=== PATIENT | male | born 1960 | race African-American/Black ===

== ENCOUNTER 2018-10-07 04:49 | Inpatient (IN) | payer MEDICARE, MEDICAID ==
[~2018-10-07] VITALS: Ht 182.9 cm; Wt 90.7 kg
[~2018-10-07 04:49] MED LIST: ALPRAZOLAM1 M2 PO; COREG6.25 MG PO; FAMOTIDINE20 MG PO; GLUCOPHAGE500 MG PO; HYDROCHLOROTH12.5 MG PO; LYRICA50 MG PO; METOCLOPRAMIDE H5 M1 PO; NORVASC10 MG PO; TAMSULOSIN HCL0.4 MG PO; VICODIN ES 7.51 EACH ORAL; ZESTRIL20 MG PO; ZOCOR40 MG PO
[2018-10-07 04:58] VITALS: BP 127/84
--- NOTE | 2018-10-07 05:02 | NUR ---
ED Nurse Note: Patient BIBA RA 61 c/o chest pain radiating to back, shortness of breath for 1 hour. Patient reports 9/10 pressure pain that went to 5/10 after 3 sprays of ntg, and 324 mg of ASA. pt is alert and oriented times 4. pt states he is blind. pt vital signs are stable aside heart rate being at 108 during traig. pt presents with a pace maker located on L chest. fall precations are taken.
--- NOTE | 2018-10-07 05:10 | Emergency Room Report ---
History of Present Illness General Chief Complaint: Chest Pain Source: Patient Present Illness HPI Is a 58-year-old male with a history of CAD, CHF, A. fib, diabetes who presents with chief complaint of chest pain. He gets frequent chest pain and goes the hospital frequently. He presents with chief complaint of chest pain while he was a restaurant nearby. Pain is 7 to his chest. No radiation. No shortness of breath. No fever chills but no nausea no vomiting. Similar symptom in the past. EMS gave him aspirin and nitroglycerin. Last hospitalization was a month ago. Allergies: Coded Allergies: No Known Allergies (Verified , 11/06/11) Patient History Past Medical History: see triage record, old chart reviewed, DM, HTN, FL, CHF, AFib Past Surgical History: other - AICD Pertinent Family History: none Social History: Reports: smoking Immunizations: other Reviewed Nursing Documentation: PMH: Agreed; PSxH: Agreed Nursing Documentation-PMH Past Medical History: No History, Except For Hx Cardiac Problems: Yes - afib Hx Hypertension: Yes Hx Diabetes: Yes Hx Cancer: No Hx Gastrointestinal Problems: No Hx Neurological Problems: No Review of Systems Eye: Denies: eye pain, blurred vision ENT: Denies: ear pain, nose congestion, throat swelling Respiratory: Denies: cough, shortness of breath Cardiovascular: Reports: chest pain; Denies: palpitations Gastrointestinal: Denies: abdominal pain, diarrhea, nausea, vomiting Musculoskeletal: Denies: back pain, joint pain Skin: Denies: rash Neurological: Denies: headache, numbness Endocrine: Denies: increased thirst, increased urine Hematologic/Lymphatic: Denies: easy bruising All Other Systems: negative except mentioned in HPI Physical Exam Vital Signs Date Time Temp Pulse Resp B/P (MAP) Pulse Ox O2 Delivery O2 Flow Rate FiO2 10/07/18 04:52 98.4 108 16 127/84 98 Room Air 10/07/18 04:58 99 VITALS UNREMARKABLE Sp02 EP Interpretation: reviewed, normal General Appearance: well appearing, no apparent distress, alert Head: normocephalic, atraumatic Eyes: bilateral eye PERRL, bilateral eye EOMI, bilateral eye other - Patient is blind ENT: hearing grossly normal, normal pharynx Neck: full range of motion, supple, no meningismus Respiratory: chest non-tender, lungs clear, normal breath sounds Cardiovascular #1: regular rate, rhythm, no murmur Gastrointestinal: normal bowel sounds, non tender, no mass, no organomegaly, no bruit, non-distended Musculoskeletal: back normal, gait/station normal, normal range of motion, other - Right BKA Neurologic: alert, oriented x3 Psychiatric: mood/affect normal Skin: warm/dry Medical Decision Making Diagnostic Impression: Primary Impression: ACS (acute coronary syndrome) Additional Impressions: Hyperglycemia due to type 2 diabetes mellitus Qualified Codes: E11.65 - Type 2 diabetes mellitus with hyperglycemia CKD (chronic kidney disease) Qualified Codes: N18.9 - Chronic kidney disease, unspecified Proteinuria Qualified Codes: R80.9 - Proteinuria, unspecified ER Course Patient presents with chest pain. He does have multiple risk factors for ACS. His troponin is 0.3. He is pain-free here. He received aspirin and nitroglycerin by EMS. I gave him Lovenox here. EKG showed no evidence of acute ST elevation. Will admit for further workup. I contacted Dr. Raphael for admission. Lab Results Impression labs with intermediate troponin EKG Diagnostic Results Rate: normal Rhythm: NSR ST Segments: other - bifasicular block Rhythm Strip Diag. Results EP Interpretation: yes Rate: 99 Rhythm: NSR, no PVC's Chest X-Ray Diagnostic Results Chest X-Ray Diagnostic Results : Chest X-Ray Ordered: Yes # of Views/Limited/Complete: 1 View Indication: Chest Pain EP Interpretation: Yes Interpretation: no consolidation, no effusion, no pneumothorax, no acute cardiopulmonary disease Impression: No acute disease Electronically Signed by: Sergio Chairez MD Last Vital Signs Date Time Temp Pulse Resp B/P (MAP) Pulse Ox O2 Delivery O2 Flow Rate FiO2 10/07/18 04:58 98.4 108 16 127/84 98 Room Air 10/07/18 04:58 99 Status: improved Disposition: ADMITTED INPATIENT Condition: Serious Sergio Chairez MD Oct 07, 2018 05:10
[2018-10-07 05:48] LABS: BASOPHILS % (AUTO) 1.6 % (0.0-2.0); EOSINOPHILS % (AUTO) 0.6 % (0.0-3.0); HEMATOCRIT 40.6 % (42.0-52.0); HEMOGLOBIN 13.8 G/DL (14.2-18.0); MEAN CORPUSCULAR VOLUME 86 FL (80-99); MONOCYTES % (AUTO) 7.2 % (1.0-10.0); NEUTROPHILS % (AUTO) 76.5 % (45.0-75.0); PLATELET COUNT 286 K/UL (150-450); RED BLOOD COUNT 4.71 M/UL (4.70-6.10); RED CELL DISTRIBUTION WIDTH 14.8 % (11.6-14.8); WHITE BLOOD COUNT 12.7 K/UL (4.8-10.8)
[2018-10-07 05:58] LABS: APPEARANCE,URINE CLEAR; BILIRUBIN, URINE NEGATIVE (NEGATIVE); COLOR,URINE PALE YELLOW; GLUCOSE, URINE (UA) 4+ (NEGATIVE); KETONES,URINE NEGATIVE (NEGATIVE); LEUKOCYTE ESTERASE ,URINE NEGATIVE (NEGATIVE); NITRITE,URINE NEGATIVE (NEGATIVE); PH,URINE 5 (4.5-8.0); PROTEIN,URINE 2+ (NEGATIVE); UROBILINOGEN,URINE NORMAL MG/DL (0.0-1.0)
[2018-10-07 06:00] LABS: ANION GAP 9 mmol/L (5-15); BLOOD UREA NITROGEN 39 mg/dL (7-18); CALCIUM 9.7 MG/DL (8.5-10.1); CARBON DIOXIDE 25 MMOL/L (21-32); CHLORIDE 98 MMOL/L (98-107); CREATININE 1.9 MG/DL (0.55-1.30); SODIUM 132 MMOL/L (136-145)
[2018-10-07 06:15] LABS: ALANINE AMINOTRANSFERASE 23 U/L (12-78); ALBUMIN 4.1 G/DL (3.4-5.0); ALBUMIN/GLOBULIN RATIO 1.1 (1.0-2.7); ALKALINE PHOSPHATASE 94 U/L (46-116); ASPARTATE AMINO TRANSFERASE 12 U/L (15-37); BILIRUBIN,TOTAL 0.5 MG/DL (0.2-1.0); CKMB 1.7 NG/ML (0.0-3.6); CREATINE KINASE 104 U/L (26-308)
--- NOTE | 2018-10-07 06:20 | NUR ---
ED Nurse Note: PT has a R leg prostesis.
[2018-10-07 06:21] VITALS: BP 120/81
--- NOTE | 2018-10-07 06:28 | NUR ---
ED Nurse Note: PT is transfered to TELE with ERIC ROLLE . pt status, condition and vital signs are reported to ERMD and receving RN prior to transfer. pt vital signs, status and condtion are stable and pt is stable for transfer at this time.
[2018-10-07] MEDS ORDERED: Enoxaparin 100mg Inj SUBQ ONE (06:30)
[2018-10-07] MEDS ORDERED: Morphine Sulfate 4mg/ml Inj (IV/IM USE ONLY) IVP ONE (06:45)
--- NOTE | 2018-10-07 07:20 | NUR ---
NURSE NOTES: I received the patient resting in bed. Patient alert and oriented x4. Bed in the lowest position and call light within reach. Patient does not display any signs of distress or SOB. I will continue to monitor the patient and implement care.
[2018-10-07 08:00] VITALS: BP 126/80
[2018-10-07] MEDS: Aspirin Baby 81mg ORAL SCH (08:29)
--- NOTE | 2018-10-07 10:32 | Consultation ---
Consult Note Consult Note asked to eval for renal failure- Is a 58-year-old male with a history of CAD, CHF, A. fib, diabetes who presents with chief complaint of chest pain. He gets frequent chest pain and goes the hospital frequently. He presents with chief complaint of chest pain while he was a restaurant nearby. Pain is 7 to his chest. No radiation. No shortness of breath. No fever chills but no nausea no vomiting. Similar symptom in the past. EMS gave him aspirin and nitroglycerin. Last hospitalization was a month ago. No Known Allergies (Verified , 11/06/11) Past Medical History: see triage record, old chart reviewed, DM, HTN, NE, CHF, AFib Past Surgical History: other - AICD Past Medical History: No History, Except For Hx Cardiac Problems: Yes - afib Hx Hypertension: Yes Hx Diabetes: Yes interviewed examined data reviewed Assessment/Plan Diabetic Nephropathy DM OOC Renal failure chronic Pacer ACS urine + for MJ coreg zestril nitro asa starlix medium cho diet accu check ss insulin 2Decho : There is akinesis of posterior wall. Ischemic cardiomyopathy can not be excluded. Left ventricular ejection fraction estimated to be 45 %. per orders Shashank Thakur MD Oct 07, 2018 10:32
[2018-10-07] MEDS: Carvedilol 6.25mg Tab ORAL SCH ×2 (11:16→22:45)
[2018-10-07] MEDS: Lisinopril 2.5mg tab ORAL SCH (11:16)
[2018-10-07 11:17] VITALS: BP 127/74
[2018-10-07] MEDS: Nitroglycerin Patch 0.4mg TDERMAL SCH (11:17)
--- NOTE | 2018-10-07 11:20 | Diagnostic Imaging Report ---
Indication: Chest pain Comparison: 02/17/2013 A single view chest radiograph was obtained. Findings: Cardiomediastinal appearance is within normal limits for age. There is a pacemaker on the left again noted. The lungs are clear. Pulmonary vascularity is appropriate. The diaphragmatic contour is smooth and costophrenic angles are sharp. No pleural effusions are identified. The bones are unremarkable. Impression: No acute findings
[2018-10-07 12:00] VITALS: BP 132/70
--- NOTE | 2018-10-07 17:23 | Cardiology Report ---
APPROVED REPORT EXAM: Two-dimensional and M-mode echocardiogram with Doppler and color Doppler. INDICATION Congestive Heart Failure M-Mode DIMENSIONS IVSd1.0 (0.7-1.1cm)Left Atrium (MM)3.6 (1.6-4.0cm) LVDd5.3 (3.5-5.6cm)Aortic Root4.0 (2.0-3.7cm) PWd1.2 (0.7-1.1cm)Aortic Cusp Exc.2.0 (1.5-2.0cm) IVSs1.3 cm LVDs4.2 (2.5-4.0cm) PWs1.1 cm Technically difficult study due to poor acoustical windows. Left ventricular chamber size at upper normal limits. There is akinesis of posterior wall. Ischemic cardiomyopathy can not be excluded. Left ventricular ejection fraction estimated to be 45 %. Mild left ventricular hypertrophy by 2D. No evidence of pericardial effusion. All other cardiac chamber sizes are within normal limits. Focal aortic valve sclerosis with adequate cusp excursion. Thickened mitral valve leaflets with normal excursion. Mitral annulus and aortic root calcification. Pulmonic valve not well visualized. Normal tricuspid valve structure. IVC measured at 2.0 cm with slight physiologic collapse A color flow and spectral Doppler study was performed and revealed: Trace aortic regurgitation. Mild to moderate mitral regurgitation. Mitral diastolic velocities suggest reduced left ventricular relaxation c/w mild LV diastolic dysfunction (Grade I). Trace tricuspid regurgitation. Tricuspid systolic velocities suggests peak right ventricular systolic pressure of 13 mmHg
--- NOTE | 2018-10-07 17:56 | Cardiology Report ---
APPROVED REPORT EKG Measurement Heart [id number] Sinus tachycardia Right bundle branch block Left anterior fascicular block Bifascicular block Left ventricular hypertrophy with repolarization abnormality Abnormal ECG
--- NOTE | 2018-10-07 18:24 | NUR ---
CASE MANAGEMENT: REVIEW 58/M BIBA FROM HOME CC: CHEST PAIN . SOB X1 HOUR SI: ACS T 97.6 HR 108 RR 19 BP 127/74 SAT 98% ROOM AIR WBC 12.7 NA 132 BUN 39 CR 1.9 TROPONIN I 0.304 BNP 330 IS: MORPHINE IV X1 LOVENOX SQ X1 INTERQUAL CRITERIA MET: PATIENT ADMITTED TO TELEMETRY UNIT 10/07/2018 DCP: PATIENT IS FROM HOME
--- NOTE | 2018-10-07 19:28 | NUR ---
HAND-OFF: Report given to ERIC Finn.
--- NOTE | 2018-10-07 19:30 | NUR ---
NURSE NOTES: Got report from Grazyna REYES. Pt in stable condition. Denies any pain. No s/s of distress or discomfort noted. Pt resting in bed comfortably. Bed in low and locked position, call light within reach, bedside table within reach. continue to monitor.
[2018-10-07] MEDS: Tamsulosin 0.4mg cap ORAL SCH ×2 (20:15→20:34)
--- NOTE | 2018-10-07 21:09 | Cardiology Progress Note ---
Assessment/Plan Assessment/Plan The patient is seen and examined, full consult note will be dictated. Objective Last 24 Hour Vital Signs Date Time Temp Pulse Resp B/P (MAP) Pulse Ox O2 Delivery O2 Flow Rate FiO2 10/07/18 16:24 97.6 10/07/18 15:19 63 10/07/18 12:00 97.6 68 19 132/70 (90) 98 10/07/18 11:37 69 10/07/18 11:17 70 127/74 (91) 10/07/18 11:17 127/74 10/07/18 11:16 127/74 10/07/18 11:16 70 127/74 10/07/18 09:00 Room Air 10/07/18 08:24 Room Air 10/07/18 08:00 97.8 77 20 126/80 (95) 98 10/07/18 07:44 84 10/07/18 06:27 98.4 90 16 120/81 98 Room Air 99 10/07/18 06:21 98.4 90 16 120/81 98 Room Air 10/07/18 04:58 98.4 108 16 127/84 98 Room Air 10/07/18 04:58 108 16 Room Air 99 10/07/18 04:52 98.4 108 16 127/84 98 Room Air Laboratory Tests Test 10/07/18 05:20 White Blood Count 12.7 K/UL (4.8-10.8) H Red Blood Count 4.71 M/UL (4.70-6.10) Hemoglobin 13.8 G/DL (14.2-18.0) L Hematocrit 40.6 % (42.0-52.0) L Mean Corpuscular Volume 86 FL (80-99) Mean Corpuscular Hemoglobin 29.3 PG (27.0-31.0) Mean Corpuscular Hemoglobin Concent 34.1 G/DL (32.0-36.0) Red Cell Distribution Width 14.8 % (11.6-14.8) Platelet Count 286 K/UL (150-450) Mean Platelet Volume 7.1 FL (6.5-10.1) Neutrophils (%) (Auto) 76.5 % (45.0-75.0) H Lymphocytes (%) (Auto) 14.0 % (20.0-45.0) L Monocytes (%) (Auto) 7.2 % (1.0-10.0) Eosinophils (%) (Auto) 0.6 % (0.0-3.0) Basophils (%) (Auto) 1.6 % (0.0-2.0) Prothrombin Time 10.7 SEC (9.30-11.50) Prothromb Time International Ratio 1.0 (0.9-1.1) Activated Partial Thromboplast Time 33 SEC (23-33) Urine Color Pale yellow Urine Appearance Clear Urine pH 5 (4.5-8.0) Urine Specific [place] 1.020 (1.005-1.035) Urine Protein 2+ (NEGATIVE) H Urine Glucose (UA) 4+ (NEGATIVE) H Urine Ketones Negative (NEGATIVE) Urine Blood Negative (NEGATIVE) Urine Nitrite Negative (NEGATIVE) Urine Bilirubin Negative (NEGATIVE) Urine Urobilinogen Normal MG/DL (0.0-1.0) Urine Leukocyte Esterase Negative (NEGATIVE) Urine RBC 0-2 /HPF (0 - 0) H Urine WBC 0 /HPF (0 - 0) Urine Squamous Epithelial Cells None /LPF (NONE/OCC) Urine Bacteria Few /HPF (NONE) Sodium Level 132 MMOL/L (136-145) L Potassium Level 5.0 MMOL/L (3.5-5.1) Chloride Level 98 MMOL/L (98-107) Carbon Dioxide Level 25 MMOL/L (21-32) Anion Gap 9 mmol/L (5-15) Blood Urea Nitrogen 39 mg/dL (7-18) H Creatinine 1.9 MG/DL (0.55-1.30) H Estimat Glomerular Filtration Rate 44.4 mL/min (>60) Glucose Level 278 MG/DL (74-106) H Calcium Level 9.7 MG/DL (8.5-10.1) Total Bilirubin 0.5 MG/DL (0.2-1.0) Aspartate Amino Transf (AST/SGOT) 12 U/L (15-37) L Alanine Aminotransferase (ALT/SGPT) 23 U/L (12-78) Alkaline Phosphatase 94 U/L (46-116) Total Creatine Kinase 104 U/L (26-308) Creatine Kinase MB 1.7 NG/ML (0.0-3.6) Creatine Kinase MB Relative Index 1.6 Troponin I 0.304 ng/mL (0.000-0.056) C-Reactive Protein, Quantitative 1.7 mg/dL (0.00-0.90) H Pro-B-Type Natriuretic Peptide 330 pg/mL (0-125) H Total Protein 7.9 G/DL (6.4-8.2) Albumin 4.1 G/DL (3.4-5.0) Globulin 3.8 g/dL Albumin/Globulin Ratio 1.1 (1.0-2.7) Urine Opiates Screen Negative (NEGATIVE) Urine Barbiturates Screen Negative (NEGATIVE) Phencyclidine (PCP) Screen Negative (NEGATIVE) Urine Amphetamines Screen Negative (NEGATIVE) Urine Benzodiazepines Screen Negative (NEGATIVE) Urine Cocaine Screen Negative (NEGATIVE) Urine Marijuana (THC) Screen Positive (NEGATIVE) H Nilton Teresa MD Oct 07, 2018 21:09
[2018-10-07] MEDS ORDERED: Norco 5mg/325mg tab ORAL PRN (21:30)
[2018-10-07] MEDS: Morphine Sulfate 4mg/ml Inj (IV/IM USE ONLY) IVP PRN (22:52)
--- NOTE | 2018-10-08 04:00 | History and Physical Report ---
DATE OF ADMISSION: 10/07/2018 HISTORY OF PRESENT ILLNESS: The patient basically has been admitted for chest pain, rule out acute coronary syndrome. The patient has multiple risk factors, multiple recent ER visits for the chest pain, troponin was 0.3, and also has azotemia. The patient also had chest pain x1 day and does radiate to the back and to the left arm associated with palpitation and sweating. The patient has a history of atrial fibrillation, congestive heart failure, and cardiomegaly, status post myocardial infarction x4 and has 5 stents, so he is a very high risk patient. The patient denies orthopnea. Denies nausea, vomiting, or diarrhea. PAST MEDICAL HISTORY: Hypertension, NIDDM, neuropathy, atrial fibrillation, congestive heart failure, cardiomegaly, CAD, status post myocardial infarction x4. 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 MEDICATIONS: Coreg, lisinopril, metformin, and Lyrica. ALLERGIES: No known allergies. FAMILY HISTORY: Noncontributory. SOCIAL HISTORY: The patient is positive for marijuana. Also history of smoking. Denies history of alcohol abuse. REVIEW OF SYSTEMS: HEENT: Denies headaches. RESPIRATORY: Denies shortness of breath. Denies cough. CARDIOVASCULAR: Reports chest pain x1 that radiates to the back and the left lung. GI: Denies nausea, vomiting, or diarrhea. Denies heartburn. EXTREMITIES: Denies pain. Does have back pain. Generalized chronic pain syndrome. [employer]: No change in speech pattern. PHYSICAL EXAMINATION: VITAL SIGNS: Temperature 97.6, pulse is 60, and blood pressure 130/70. HEENT: PERRLA. 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 NECK: Supple. No lymphadenopathy. CHEST: Clear to auscultation. CARDIOVASCULAR: Irregular. GASTROINTESTINAL: Soft, nontender, and nondistended. No organomegaly. EXTREMITIES: No edema. Does have right AKA. Otherwise, able to move extremities. LABORATORY DATA: WBC of 12.7, hemoglobin 13.8, and platelets 286,000. Sodium 133, potassium 5, BUN of 39, creatinine 1.9, and glucose of 278. Troponin of 0.304. ASSESSMENT: 1. Chest pain. 2. Acute renal failure. 3. Positive troponin. 4. High risk for acute coronary syndrome. PLAN: I have asked basically Dr. Teresa, Dr. Thakur, and Dr. Villalobos to see the patient for pain control and also for chest pain management as well as for acute renal failure. The patient will be given intravenous fluids and ____ very carefully in the setting of CHF. Christina Lea M.D. DR: CLINTON JOB#: [id number] CC:
[2018-10-08 04:53] VITALS: BP 123/71
--- NOTE | 2018-10-08 07:19 | NUR ---
HAND-OFF: Report given to matteo gary. endorsed plan of care.
--- NOTE | 2018-10-08 07:20 | NUR ---
NURSE NOTES: I received the patient resting in bed. Patient alert and oriented. Bed in the lowest position and call light within reach. Patient does not display any signs of distress or SOB. I will continue to monitor the patient and implement care.
[2018-10-08 08:31] LABS: BASOPHILS % (AUTO) 1.3 % (0.0-2.0); EOSINOPHILS % (AUTO) 1.6 % (0.0-3.0); HEMATOCRIT 39.5 % (42.0-52.0); HEMOGLOBIN 13.3 G/DL (14.2-18.0); LYMPHOCYTES % (AUTO) 40.1 % (20.0-45.0); MEAN CORPUSCULAR VOLUME 86 FL (80-99); MONOCYTES % (AUTO) 9.5 % (1.0-10.0); NEUTROPHILS % (AUTO) 47.5 % (45.0-75.0); PLATELET COUNT 255 K/UL (150-450); RED BLOOD COUNT 4.58 M/UL (4.70-6.10); RED CELL DISTRIBUTION WIDTH 14.7 % (11.6-14.8); WHITE BLOOD COUNT 5.9 K/UL (4.8-10.8)
[2018-10-08 08:44] VITALS: BP 121/60
[2018-10-08 09:04] LABS: ALANINE AMINOTRANSFERASE 21 U/L (12-78); ALBUMIN 3.8 G/DL (3.4-5.0); ALKALINE PHOSPHATASE 84 U/L (46-116); ANION GAP 10 mmol/L (5-15); ASPARTATE AMINO TRANSFERASE 14 U/L (15-37); BILIRUBIN,TOTAL 0.5 MG/DL (0.2-1.0); BLOOD UREA NITROGEN 25 mg/dL (7-18); CALCIUM 9.2 MG/DL (8.5-10.1); CARBON DIOXIDE 25 MMOL/L (21-32); CHLORIDE 104 MMOL/L (98-107); CHOLESTEROL 125 MG/DL (< 200); CREATINE KINASE 82 U/L (26-308); CREATININE 1.4 MG/DL (0.55-1.30); FERRITIN 26 NG/ML (8-388); GAMMA GLUTAMYL TRANSPEPTIDASE 25 U/L (5-85); HDL CHOLESTEROL 39 MG/DL (40-60); PHOSPHORUS 4.1 MG/DL (2.5-4.9); POTASSIUM 4.7 MMOL/L (3.5-5.1); SODIUM 139 MMOL/L (136-145); TRIGLYCERIDES 82 MG/DL (30-150)
[2018-10-08] MEDS: Aspirin Baby 81mg ORAL SCH (09:14)
[2018-10-08] MEDS: Lisinopril 2.5mg tab ORAL SCH ×2 (09:14→17:35)
[2018-10-08] MEDS: Morphine Sulfate 4mg/ml Inj (IV/IM USE ONLY) IVP PRN ×3 (09:15→22:04)
[2018-10-08 09:25] LABS: % IRON SATURATION 17 % (15-50); IRON 49 ug/dL (50-175); TOTAL IRON BINDING CAPACITY 290 ug/dL (250-450)
[2018-10-08] MEDS: Nitroglycerin Patch 0.4mg TDERMAL SCH (10:52)
[2018-10-08] MEDS: Carvedilol 6.25mg Tab ORAL SCH ×2 (10:52→22:08)
[2018-10-08 12:00] VITALS: BP 107/57
[2018-10-08] MEDS ORDERED: Lexiscan 0.4mg/5ml syringe IV PRN (14:30)
[2018-10-08 16:00] VITALS: BP 107/62
--- NOTE | 2018-10-08 16:00 | Nephrology Progress Note ---
Assessment/Plan Problem List: (1) Hyperglycemia due to type 2 diabetes mellitus (2) CKD (chronic kidney disease) (3) ACS (acute coronary syndrome) (4) Proteinuria (5) Cardiomyopathy Assessment Diabetic Nephropathy DM OOC Renal failure chronic Pacer ACS urine + for MJ Plan coreg zestril nitro asa starlix medium cho diet accu check ss insulin 2Decho : There is akinesis of posterior wall. Ischemic cardiomyopathy can not be excluded. Left ventricular ejection fraction estimated to be 45 %. per orders Subjective ROS Limited/Unobtainable: No Constitutional: Reports: malaise Objective Objective Last 24 Hour Vital Signs Date Time Temp Pulse Resp B/P (MAP) Pulse Ox O2 Delivery O2 Flow Rate FiO2 10/08/18 12:00 97.4 90 20 107/57 (74) 97 10/08/18 10:52 123/71 10/08/18 10:52 64 123/71 10/08/18 09:45 97.5 10/08/18 09:14 121/60 10/08/18 08:44 97.5 73 19 121/60 (80) 95 10/08/18 08:38 Room Air 10/08/18 07:19 75 10/08/18 04:56 70 10/08/18 04:53 98.5 94 16 123/71 (88) 98 10/08/18 00:56 67 10/07/18 22:45 75 132/85 10/07/18 21:00 Room Air 10/07/18 20:00 70 10/07/18 16:24 97.6 Intake and Output 10/07/18 10/08/18 19:00 07:00 Intake Total 236 ml Output Total 1300 ml 1500 ml Balance -1064 ml -1500 ml Intake Oral 236 ml Output Urine Total 1300 ml 1500 ml # Voids 3 Laboratory Tests 10/08/18 06:18: White Blood Count 5.9#, Red Blood Count 4.58L, Hemoglobin 13.3L, Hematocrit 39.5L, Mean Corpuscular Volume 86, Mean Corpuscular Hemoglobin 29.0, Mean Corpuscular Hemoglobin Concent 33.7, Red Cell Distribution Width 14.7, Platelet Count 255, Mean Platelet Volume 6.8, Neutrophils (%) (Auto) 47.5, Lymphocytes (% ) (Auto) 40.1, Monocytes (%) (Auto) 9.5, Eosinophils (%) (Auto) 1.6, Basophils ( %) (Auto) 1.3, Sodium Level 139, Potassium Level 4.7, Chloride Level 104, Carbon Dioxide Level 25, Anion Gap 10, Blood Urea Nitrogen 25H, Creatinine 1.4H , Estimat Glomerular Filtration Rate > 60, Glucose Level 134#H, Hemoglobin A1c 8.3H, Uric Acid 6.5, Calcium Level 9.2, Phosphorus Level 4.1, Magnesium Level 2.1, Iron Level 49L, Total Iron Binding Capacity 290, Percent Iron Saturation 17 , Unsaturated Iron Binding 241, Ferritin 26, Total Bilirubin 0.5, Gamma Glutamyl Transpeptidase 25, Aspartate Amino Transf (AST/SGOT) 14L, Alanine Aminotransferase (ALT/SGPT) 21, Alkaline Phosphatase 84, Total Creatine Kinase 82, Troponin I 0.169H, Pro-B-Type Natriuretic Peptide 280H, Total Protein 7.5, Albumin 3.8, Globulin 3.7, Albumin/Globulin Ratio 1.0, Triglycerides Level 82, Cholesterol Level 125, LDL Cholesterol 72, HDL Cholesterol 39L, Cholesterol/HDL Ratio 3.2L, Vitamin B12 Level 877, Folate 11.4, Thyroid Stimulating Hormone (TSH ) 0.525 Height (Feet): 6 Weight (Pounds): 200 General Appearance: no apparent distress Cardiovascular: bradycardia Respiratory/Chest: decreased breath sounds Abdomen: soft Objective no change Shashank Thakur MD Oct 08, 2018 16:00
--- NOTE | 2018-10-08 16:45 | Consultation ---
History of Present Illness General Date patient seen: Oct 08, 2018 Time patient seen: 03:50 - pm Chief Complaint: Right LE pain Referring physician: Venu Reason for Consultation: Pain Management Present Illness HPI This is a 58 y/o male being seen for initial pain management consultation. He has been having right LE pain due to a BKA for a few years. Admitted due to chest pain and r/o ACS being seen by a card reader. We were consulted so patient has adequate pain control while here in the hospital. Started on Morphine 4mg IV Q4H PRN which has been helping patient to tolerate the pain. . Allergies: Coded Allergies: No Known Allergies (Verified , 11/06/11) Medication History Scheduled Carvedilol (Coreg), 6.25 MG PO Q12H, (Reported) Hydrocodone/Acetaminophen 7.5-750 (Vicodin Es 7.5-750), 1 TAB ORAL Q6H, ( Reported) Lisinopril* (Zestril*), 20 MG PO BID, (Reported) Metformin Hcl* (Glucophage*), 500 MG PO BID, (Reported) Pregabalin (Lyrica), 200 MG PO TID, (Reported) Discontinued Medications Alprazolam (Alprazolam), 1 MG PO BID, (Reported) Discontinued Reason: Therapy completed Amlodipine Besylate (Norvasc), 10 MG PO DAILY, (Reported) Discontinued Reason: Therapy completed Famotidine (Famotidine), 20 MG PO DAILY, (Reported) Discontinued Reason: Therapy completed Hydrochlorothiazide* (Hydrochlorothiazide*), 25 MG PO DAILY, (Reported) Discontinued Reason: Therapy completed Metoclopramide Hcl* (Metoclopramide Hcl*), 10 MG PO AC+HS, (Reported) Discontinued Reason: Therapy completed Simvastatin (Zocor), 40 MG PO HS, (Reported) Discontinued Reason: Therapy completed Tamsulosin Hcl (Tamsulosin Hcl*), 0.4 MG PO HS, (Reported) Discontinued Reason: Therapy completed Patient History Healthcare decision maker Resuscitation status Full Code Advanced Directive on File No Past Medical/Surgical History Past Medical/Surgical History: (1) ACS (acute coronary syndrome) (2) CKD (chronic kidney disease) (3) Hyperglycemia due to type 2 diabetes mellitus (4) Cardiomyopathy Review of Systems Constitutional: Reports: no symptoms Eye: Reports: other - blindness ENT: Reports: no symptoms Respiratory: Reports: no symptoms Cardiovascular: Reports: no symptoms Gastrointestinal: Reports: no symptoms Genitourinary: Reports: no symptoms Musculoskeletal: Reports: other - right BKA pain Skin: Reports: no symptoms Psychiatric: Reports: no symptoms Neurological: Reports: no symptoms Endocrine: Reports: no symptoms Hematologic/Lymphatic: Reports: no symptoms Physical Exam General Appearance: no apparent distress, alert HEENT: normocephalic, atraumatic Neck: non-tender, supple Respiratory/Chest: lungs clear Cardiovascular/Chest: normal rate, regular rhythm Abdomen: non tender, soft Extremities: other - Right BKA Noted Neurologic: alert, oriented x 3 Last 24 Hour Vital Signs Date Time Temp Pulse Resp B/P (MAP) Pulse Ox O2 Delivery O2 Flow Rate FiO2 10/08/18 16:09 97.5 10/08/18 16:00 97.5 67 20 107/62 (77) 97 10/08/18 12:00 97.4 90 20 107/57 (74) 97 10/08/18 11:52 64 10/08/18 10:52 123/71 10/08/18 10:52 64 123/71 10/08/18 09:14 121/60 10/08/18 08:44 97.5 73 19 121/60 (80) 95 10/08/18 08:38 Room Air 10/08/18 07:19 75 10/08/18 04:56 70 10/08/18 04:53 98.5 94 16 123/71 (88) 98 10/08/18 00:56 67 10/07/18 22:45 75 132/85 10/07/18 21:00 Room Air 10/07/18 20:00 70 Intake and Output 10/07/18 10/08/18 19:00 07:00 Intake Total 236 ml Output Total 1300 ml 1500 ml Balance -1064 ml -1500 ml Intake Oral 236 ml Output Urine Total 1300 ml 1500 ml # Voids 3 Laboratory Tests Test 10/08/18 06:18 White Blood Count 5.9 K/UL (4.8-10.8) # Red Blood Count 4.58 M/UL (4.70-6.10) L Hemoglobin 13.3 G/DL (14.2-18.0) L Hematocrit 39.5 % (42.0-52.0) L Mean Corpuscular Volume 86 FL (80-99) Mean Corpuscular Hemoglobin 29.0 PG (27.0-31.0) Mean Corpuscular Hemoglobin Concent 33.7 G/DL (32.0-36.0) Red Cell Distribution Width 14.7 % (11.6-14.8) Platelet Count 255 K/UL (150-450) Mean Platelet Volume 6.8 FL (6.5-10.1) Neutrophils (%) (Auto) 47.5 % (45.0-75.0) Lymphocytes (%) (Auto) 40.1 % (20.0-45.0) Monocytes (%) (Auto) 9.5 % (1.0-10.0) Eosinophils (%) (Auto) 1.6 % (0.0-3.0) Basophils (%) (Auto) 1.3 % (0.0-2.0) Sodium Level 139 MMOL/L (136-145) Potassium Level 4.7 MMOL/L (3.5-5.1) Chloride Level 104 MMOL/L (98-107) Carbon Dioxide Level 25 MMOL/L (21-32) Anion Gap 10 mmol/L (5-15) Blood Urea Nitrogen 25 mg/dL (7-18) H Creatinine 1.4 MG/DL (0.55-1.30) H Estimat Glomerular Filtration Rate > 60 mL/min (>60) Glucose Level 134 MG/DL (74-106) #H Hemoglobin A1c 8.3 % (4.3-6.0) H Uric Acid 6.5 MG/DL (2.6-7.2) Calcium Level 9.2 MG/DL (8.5-10.1) Phosphorus Level 4.1 MG/DL (2.5-4.9) Magnesium Level 2.1 MG/DL (1.8-2.4) Iron Level 49 ug/dL (50-175) L Total Iron Binding Capacity 290 ug/dL (250-450) Percent Iron Saturation 17 % (15-50) Unsaturated Iron Binding 241 ug/dL (112-346) Ferritin 26 NG/ML (8-388) Total Bilirubin 0.5 MG/DL (0.2-1.0) Gamma Glutamyl Transpeptidase 25 U/L (5-85) Aspartate Amino Transf (AST/SGOT) 14 U/L (15-37) L Alanine Aminotransferase (ALT/SGPT) 21 U/L (12-78) Alkaline Phosphatase 84 U/L (46-116) Total Creatine Kinase 82 U/L (26-308) Troponin I 0.169 ng/mL (0.000-0.056) Pro-B-Type Natriuretic Peptide 280 pg/mL (0-125) H Total Protein 7.5 G/DL (6.4-8.2) Albumin 3.8 G/DL (3.4-5.0) Globulin 3.7 g/dL Albumin/Globulin Ratio 1.0 (1.0-2.7) Triglycerides Level 82 MG/DL (30-150) Cholesterol Level 125 MG/DL (< 200) LDL Cholesterol 72 mg/dL (<100) HDL Cholesterol 39 MG/DL (40-60) L Cholesterol/HDL Ratio 3.2 (3.3-4.4) L Vitamin B12 Level 877 PG/ML (193-986) Folate 11.4 NG/ML (8.6-58.9) Thyroid Stimulating Hormone (TSH) 0.525 uiU/mL (0.358-3.740) Height (Feet): 6 Weight (Pounds): 200 Medications Current Medications Medications (Trade) Dose Ordered Sig/Ana Route PRN Reason Start Time Stop Time Status Last Admin Dose Admin Acetaminophen (Tylenol) 650 mg Q4H PRN ORAL Mild Pain/Temp > 100.5 10/07/18 07:45 11/06/18 07:44 10/07/18 15:54 Aspirin (ASA) 81 mg DAILY ORAL 10/07/18 09:00 11/06/18 08:59 10/08/18 09:14 Atorvastatin Calcium (Lipitor) 10 mg BEDTIME ORAL 10/08/18 21:00 11/07/18 20:59 Carvedilol (Coreg) 6.25 mg Q12H ORAL 10/07/18 10:45 11/06/18 10:44 10/08/18 10:52 Lisinopril (Zestril) 2.5 mg BID ORAL 10/08/18 18:00 11/06/18 10:44 Morphine Sulfate (Morphine Sulfate) 4 mg Q4H PRN IVP PAIN 4-10 10/07/18 22:15 10/14/18 22:14 10/08/18 15:39 Nateglinide (Starlix) 120 mg TIAC ORAL 10/07/18 11:30 11/06/18 11:29 10/08/18 15:38 Nitroglycerin (Ntg) 1 patch Q24H TDERMAL 10/07/18 10:45 11/06/18 10:44 10/08/18 10:52 Pantoprazole (Protonix) 40 mg EVERY 12 HOURS ORAL 10/07/18 21:00 11/06/18 20:59 10/08/18 09:14 Regadenoson (Lexiscan) 0.4 mg ONCE PRN IV STRESS TEST 10/08/18 14:30 10/10/18 23:59 Tamsulosin HCl (Flomax) 0.4 mg BEDTIME ORAL 10/07/18 21:00 11/06/18 20:59 Assessment/Plan Assessment/Plan (1) Right LE pain (2) Right BKA (3) Phantom limb (4) Stump pain Patient to be continued on Morphine as needed. D/w Dr. Villalobos and he concurred. Thank you for this consultation. Mike Carmona Oct 08, 2018 16:44
--- NOTE | 2018-10-08 19:26 | NUR ---
HAND-OFF: Report given to ERIC Chavira.
--- NOTE | 2018-10-08 19:30 | NUR ---
NURSE NOTES: Patient received from ERIC Meredith. Patient on bed. Noted right prosthesis at the bedside. R BKA, Bilateral blindness. Left chest AICD. IV site on right wrist intact and patent. Made aware patient to be NPO at midnight for stress test. Patient acknowledged. Call light within reach. Bed brakes engaged.
[2018-10-08 20:00] VITALS: BP 105/61
[2018-10-08] MEDS: Tamsulosin 0.4mg cap ORAL SCH (22:00)
--- NOTE | 2018-10-08 22:00 | Consultation ---
DATE OF CONSULTATION: 10/08/2018 CARDIOLOGY CONSULTATION CONSULTING PHYSICIAN: Nilton Teresa M.D. REFERRING PHYSICIAN: Christina Lea M.D. REASON FOR CONSULTATION: Management of chest pain. HISTORY OF PRESENT ILLNESS: The patient is a very pleasant 58-year-old gentleman with history of coronary artery disease status post PCI, history of AICD implantation for primary prevention of sudden cardiac , history of atrial fibrillation, history of myocardial infarction, diabetes mellitus, and hypertension who presents to the hospital with complaints of chest pain which is described as pain over both upper precordial area, felt as a burning pain with radiation to the neck area, intensity of 7/10 on the scale of 1 to 10. No associated shortness of breath, nausea, vomiting, diaphoresis. He states that he has suffered from heart attack just about 10 to 12 years ago and ended up having percutaneous coronary intervention and placement of AICD . At the time of arrival to this facility, blood pressure was 127/84 mmHg, heart rate was 108. Electrocardiogram at the time of arrival to the hospital was significant for sinus tachycardia rate of 101 with combination of right bundle-branch block and left anterior fascicular block as well as left ventricular hypertrophy and repolarization abnormalities. Initial troponin I level in the emergency department was elevated at 0.3. His beta-natriuretic peptide was 330. His chemistry was also significant for elevation of BUN and creatinine of 39 and 1.9 respectively. Chest x-ray in the emergency department was significant for normal cardiac silhouette with two shocking leads next to each other as well as the right atrial lead. A 2D echocardiography was also reviewed and revealed mid inferior wall akinesia with overall left ventricular ejection fraction estimated to be 45%. There was mild mitral regurgitation and grade 1 LV diastolic dysfunction, normal right ventricular systolic pressure measured at 13 mmHg. The patient was admitted to telemetry for further evaluation and management. Cardiology consultation was made at request of Dr. Lea for assessment and management of chest pain. PAST MEDICAL HISTORY: 1. CAD, history of myocardial infarction, status post PCI. 2. History of congestive heart failure, possibly tachycardia-induced cardiomyopathy versus ischemic cardiomyopathy, status post AICD implantation. 3. History of hypertension. 4. History of diabetes mellitus. PAST SURGICAL HISTORY: 1. AICD implantation. 2. PCI. 3. Osteomyelitis of right leg status post right below-knee amputation. ALLERGIES: No known drug allergies. MEDICATIONS: List of medication includes carvedilol 6.25 mg twice daily, Vicodin ES 7.5/750 one tablet every six hours, Zestril 20 mg p.o. twice daily, Glucophage 500 mg twice daily, and Lyrica 200 mg three times daily. FAMILY HISTORY: No premature coronary artery disease in first-degree relatives. SOCIAL HISTORY: He continues to smoke cigarettes, denying alcohol or illicit drug use. REVIEW OF SYSTEMS: HEENT: Denies any headache, diplopia, or blurred vision although his eyesight is affected by prior trauma. CONSTITUTIONAL: Denies any fever, chills, night sweats, weight loss, generalized weakness. CARDIOVASCULAR: Complains of chest pain as mentioned above but no shortness of breath, PND, orthopnea, or leg swelling. PULMONARY: Denies any cough, hemoptysis, or wheezing. GASTROINTESTINAL: Denies any nausea, vomiting, diarrhea, constipation, abdominal pain, or GI bleed. GENITOURINARY: Denies any hematuria, dysuria, incontinence. NEUROLOGY: Denies any motor dysfunction, sensory deficit, or altered speech. PHYSICAL EXAMINATION: VITAL SIGNS: Blood pressure is 127/84, respirations 16, pulse of 108, temperature 98.4 degrees Fahrenheit, O2 saturation saturation 98% on room air. GENERAL: The patient is a very unfortunate 58-year-old gentleman, in no apparent respiratory distress. Alert and oriented x4. HEENT: Atraumatic and normocephalic. The patient is blind due to eye trauma. NECK: JVP less than 5 cm. No carotid bruit. Carotid upstrokes 2+ bilaterally. CARDIOVASCULAR: Normal S1, S2. Regular rate and rhythm. Tachycardic. No murmurs, gallops, or rubs. PMI is at fourth intercostal space of the midclavicular line. LUNGS: Clear to auscultation bilaterally. ABDOMEN: Soft, nontender, and nondistended. No hepatosplenomegaly. Positive bowel sounds. EXTREMITIES: There is right below-knee amputation. Left lower extremity with no edema. LABORATORY FINDINGS: Sodium is 132, potassium is 5.0, chloride 98, bicarbonate 25, BUN of 39, creatinine 1.9, glucose is 278, calcium is 9.7. Troponin I was 0.3. ProBNP was 330. INR is 1.0. Toxicology showed positive THC. Chest x-ray, no acute cardiopulmonary disease. ASSESSMENT AND PLAN: The patient is an very unfortunate 58-year-old gentleman, seen in Cardiology consultation at the request of Dr. Lea. 1. Chest pain, appears to be atypical per description. A 12-lead electrocardiogram does not show any ischemic changes; however, troponin I level is elevated. Repeat of the troponin I level shows a value of 0.169 which is a downtrend. I would like to proceed with noninvasive a nuclear stress test to rule out obstructive CAD. Fasting lipid panel will be done. 2. History of CAD status post myocardial infarction, status post PCI. 3. History of cardiomyopathy, possibilities tachycardia-induced cardiomyopathy versus ischemic cardiomyopathy. A 2D echocardiography in this facility showed improvement of LVEF, level of 10 to 15% according to the patient back in 2004 and now to 45% per echocardiography in this facility. Continue with management with beta-sandi, MAR inhibitors, possibly spironolactone. 4. Status post AICD implantation due to primary prevention of sudden cardiac . 5. Slight elevation of troponin I level, possibilities non ST elevation myocardial infarction although ECG does not show any ischemic features versus elevation of troponin due to renal failure. The patient will have a noninvasive nuclear stress imaging study to rule out obstructive CAD. 6. History of atrial fibrillation. Most likely, paroxysmal. We have not seen any evidence of atrial fibrillation ever since arrival to this facility. If that occurs, we will make the patient a candidate for anticoagulation therapy. I would like to thank, Dr. Lea, for allowing me to participate in care of this patient. Nilton Teresa M.D. DR: Rhoda JOB#: [id number] CC:
[2018-10-08] MEDS: NovoLOG Insulin Flexpen SUBQ SCH (22:01)
--- NOTE | 2018-10-08 23:23 | Cardiology Progress Note ---
Assessment/Plan Assessment/Plan 1. Atypical chest pain with elevation of trop I level s/o possible NSTEMI or trop leak due to renal failure. 12-lead electrocardiogram does not show any ischemic changes; noninvasive nuclear stress test in am to rule out obstructive CAD. 2. History of CAD status post myocardial infarction, status post PCI. 3. 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 4. Status post AICD implantation due to primary prevention of sudden cardiac . 5. Paroxysmal atrial fibrillation now in SR. 6. Right BKA due to osteomyelitis. 7. B/L blindness Subjective Subjective Sinus rhythm at rate of 67. Objective Last 24 Hour Vital Signs Date Time Temp Pulse Resp B/P (MAP) Pulse Ox O2 Delivery O2 Flow Rate FiO2 10/08/18 17:35 107/62 10/08/18 16:09 97.5 10/08/18 16:00 97.5 67 20 107/62 (77) 97 10/08/18 15:59 64 10/08/18 12:00 97.4 90 20 107/57 (74) 97 10/08/18 11:52 64 10/08/18 10:52 123/71 10/08/18 10:52 64 123/71 10/08/18 09:14 121/60 10/08/18 08:44 97.5 73 19 121/60 (80) 95 10/08/18 08:38 Room Air 10/08/18 07:19 75 10/08/18 04:56 70 10/08/18 04:53 98.5 94 16 123/71 (88) 98 10/08/18 00:56 67 Intake and Output 10/07/18 10/08/18 18:59 06:59 Intake Total 236 ml Output Total 1300 ml 1500 ml Balance -1064 ml -1500 ml Intake Oral 236 ml Output Urine Total 1300 ml 1500 ml # Voids 3 2D Echo: LVEF 45%, posterior & mid inferior wall AK, RVSp 13 mmHg, Grade I LVDD Laboratory Tests Test 10/08/18 06:18 White Blood Count 5.9 K/UL (4.8-10.8) # Red Blood Count 4.58 M/UL (4.70-6.10) L Hemoglobin 13.3 G/DL (14.2-18.0) L Hematocrit 39.5 % (42.0-52.0) L Mean Corpuscular Volume 86 FL (80-99) Mean Corpuscular Hemoglobin 29.0 PG (27.0-31.0) Mean Corpuscular Hemoglobin Concent 33.7 G/DL (32.0-36.0) Red Cell Distribution Width 14.7 % (11.6-14.8) Platelet Count 255 K/UL (150-450) Mean Platelet Volume 6.8 FL (6.5-10.1) Neutrophils (%) (Auto) 47.5 % (45.0-75.0) Lymphocytes (%) (Auto) 40.1 % (20.0-45.0) Monocytes (%) (Auto) 9.5 % (1.0-10.0) Eosinophils (%) (Auto) 1.6 % (0.0-3.0) Basophils (%) (Auto) 1.3 % (0.0-2.0) Sodium Level 139 MMOL/L (136-145) Potassium Level 4.7 MMOL/L (3.5-5.1) Chloride Level 104 MMOL/L (98-107) Carbon Dioxide Level 25 MMOL/L (21-32) Anion Gap 10 mmol/L (5-15) Blood Urea Nitrogen 25 mg/dL (7-18) H Creatinine 1.4 MG/DL (0.55-1.30) H Estimat Glomerular Filtration Rate > 60 mL/min (>60) Glucose Level 134 MG/DL (74-106) #H Hemoglobin A1c 8.3 % (4.3-6.0) H Uric Acid 6.5 MG/DL (2.6-7.2) Calcium Level 9.2 MG/DL (8.5-10.1) Phosphorus Level 4.1 MG/DL (2.5-4.9) Magnesium Level 2.1 MG/DL (1.8-2.4) Iron Level 49 ug/dL (50-175) L Total Iron Binding Capacity 290 ug/dL (250-450) Percent Iron Saturation 17 % (15-50) Unsaturated Iron Binding 241 ug/dL (112-346) Ferritin 26 NG/ML (8-388) Total Bilirubin 0.5 MG/DL (0.2-1.0) Gamma Glutamyl Transpeptidase 25 U/L (5-85) Aspartate Amino Transf (AST/SGOT) 14 U/L (15-37) L Alanine Aminotransferase (ALT/SGPT) 21 U/L (12-78) Alkaline Phosphatase 84 U/L (46-116) Total Creatine Kinase 82 U/L (26-308) Troponin I 0.169 ng/mL (0.000-0.056) Pro-B-Type Natriuretic Peptide 280 pg/mL (0-125) H Total Protein 7.5 G/DL (6.4-8.2) Albumin 3.8 G/DL (3.4-5.0) Globulin 3.7 g/dL Albumin/Globulin Ratio 1.0 (1.0-2.7) Triglycerides Level 82 MG/DL (30-150) Cholesterol Level 125 MG/DL (< 200) LDL Cholesterol 72 mg/dL (<100) HDL Cholesterol 39 MG/DL (40-60) L Cholesterol/HDL Ratio 3.2 (3.3-4.4) L Vitamin B12 Level 877 PG/ML (193-986) Folate 11.4 NG/ML (8.6-58.9) Thyroid Stimulating Hormone (TSH) 0.525 uiU/mL (0.358-3.740) Objective HEENT: Atraumatic and normocephalic. The patient is blind due to eye trauma. NECK: JVP less than 5 cm. No carotid bruit. Carotid upstrokes 2+ bilaterally. CARDIOVASCULAR: Normal S1, S2. Regular rate and rhythm. Tachycardic. No murmurs, gallops, or rubs. PMI is at fourth intercostal space of the midclavicular line. LUNGS: Clear to auscultation bilaterally. ABDOMEN: Soft, nontender, and nondistended. No hepatosplenomegaly. Positive bowel sounds. EXTREMITIES: There is right below-knee amputation. Left lower extremity with no edema. Nilton Teresa MD Oct 08, 2018 23:23
--- NOTE | 2018-10-09 00:04 | NUR ---
NURSE NOTES: VS refused at this time. Does not want to be bothered.
[2018-10-09] MEDS: Morphine Sulfate 4mg/ml Inj (IV/IM USE ONLY) IVP PRN ×4 (03:18→21:02)
--- NOTE | 2018-10-09 03:30 | NUR ---
NURSE NOTES: Patient requesting of pain medication at this time. When asked regarding patient's refusal of VS, patient verbalizes his concerns. VS taken by RN at this time. Patient is calm and cooperative.
[2018-10-09 04:00] VITALS: BP 132/68
--- NOTE | 2018-10-09 06:15 | NUR ---
NURSE NOTES: [id number]. Medication given as ordered. Patient maintained NPO from midnight. Cooperative and calm.
[2018-10-09] MEDS: NovoLOG Insulin Flexpen SUBQ SCH ×4 (06:17→21:00)
--- NOTE | 2018-10-09 07:35 | NUR ---
HAND-OFF: Report given to ERIC Knutson. Endorsed plan of care.
--- NOTE | 2018-10-09 07:42 | NUR ---
NURSE NOTES: received patient report from latonya gary. patient is on bed awake.on bed. no tin acute distress. kept npo for lexiscan stress test. sr on the monitor. no arrythmias reported during the night. bed is low and locked for safety. will continue to monitor.
[2018-10-09 08:00] VITALS: BP 146/83
[2018-10-09] MEDS: Lisinopril 2.5mg tab ORAL SCH ×2 (08:00→17:02)
[2018-10-09] MEDS: Aspirin Baby 81mg ORAL SCH (08:17)
--- NOTE | 2018-10-09 08:49 | Physician Query ---
THIS DOCUMENT IS A PERMANENT PART OF THE MEDICAL RECORD Please click Edit and put X on appropriate option Date: 10/09/2018 Bobbin Fixer/CDS's Name: Kayden calhoun Dear Dr. Lea, Consult and progress notes from Dr. Teresa includes "Possible NSTEMI". Series troponin levels; 0.304 0.169 Rx: Aspirin, Carvidelol, Nitroglycerin, Morphine Can you please clarify the status of "NSTEMI"? [ ] Rule in [ ] Rule out [ ] Other: [ ] Clinically undetermined Present on admission (Required) [ ] Yes [ ] No [ ] Clinically Undeterminable __ Physician signature Date MTDD
--- NOTE | 2018-10-09 09:28 | General Progress Note ---
Assessment/Plan Assessment/Plan (1) Right LE pain (2) Right BKA (3) Phantom limb (4) Stump pain Patient to be continued on Morphine as needed. D/w Dr. Villalobos and he concurred. Subjective Date patient seen: Oct 09, 2018 Time patient seen: 07:30 - am Constitutional: Reports: no symptoms HEENT: Reports: blurred vision Cardiovascular: Reports: no symptoms Respiratory: Reports: no symptoms Gastrointestinal/Abdominal: Reports: no symptoms Genitourinary: Reports: no symptoms Neurologic/Psychiatric: Reports: no symptoms Endocrine: Reports: no symptoms Hematologic/Lymphatic: Reports: no symptoms Allergies: Coded Allergies: No Known Allergies (Verified , 11/06/11) Subjective Patient is in bed with no signs of pain or distress. Morphine has continued to help patient tolerate the pain. Objective Last 24 Hour Vital Signs Date Time Temp Pulse Resp B/P (MAP) Pulse Ox O2 Delivery O2 Flow Rate FiO2 10/09/18 08:00 132/68 10/09/18 08:00 97.8 100 18 146/83 (104) 100 10/09/18 04:00 98.1 64 18 132/68 (89) 96 10/09/18 03:48 64 10/08/18 23:59 65 10/08/18 21:00 Room Air 10/08/18 20:10 74 10/08/18 20:00 97.9 66 18 105/61 (76) 96 10/08/18 17:35 107/62 10/08/18 16:09 97.5 10/08/18 16:00 97.5 67 20 107/62 (77) 97 10/08/18 15:59 64 10/08/18 12:00 97.4 90 20 107/57 (74) 97 10/08/18 11:52 64 10/08/18 10:52 123/71 10/08/18 10:52 64 123/71 Intake and Output 10/08/18 10/09/18 19:00 07:00 Intake Total 500 ml Output Total 700 ml Balance -200 ml Intake Oral 500 ml Output Urine Total 700 ml Height (Feet): 6 Weight (Pounds): 200 Mike Carmona Oct 09, 2018 09:28
[2018-10-09] MEDS: Carvedilol 6.25mg Tab ORAL SCH (10:43)
--- NOTE | 2018-10-09 13:35 | NUR ---
NURSE NOTES: per conversation with the patient his address in [place] is permanent, that here he gets his mail. patient stated that he lives in [address] [place] [address] but patient stated not to do any changes on his address on the facesheet.
[2018-10-09] MEDS: Nitroglycerin Patch 0.4mg TDERMAL SCH ×2 (14:05→14:09)
--- NOTE | 2018-10-09 15:29 | Diagnostic Imaging Report ---
Indication: chest pain Technique: The study was conducted under the supervision of a anthropology department chair. lexiscan (regadenoson) infusion over 10 seconds followed by intravenous administration of 30.4 mCi of technetium 99m Myoview was performed. Three plane SPECT imaging of the heart was then performed. A resting study was performed as part of the one-day protocol with 10.2 mCi of technetium 99m myoview injected intravenously at that time. Three plane SPECT imaging of the heart was obtained. Comparison: None Clinical data: 1. Clinical response: Non ischemic 2. Electrocardiographic response: Non ischemic Findings: The myocardial perfusion scan demonstrates relatively fixed large perfusion defect involving the lateral wall and inferolateral segment. This is consistent with a myocardial infarct. There is no reversibility involving any of the segments to suggest ischemia. LVEF is estimated at 65%. IMPRESSION: Large lateral and inferolateral infarct. No evidence of myocardial ischemia
--- NOTE | 2018-10-09 15:45 | Nephrology Progress Note ---
Assessment/Plan Problem List: (1) Hyperglycemia due to type 2 diabetes mellitus (2) CKD (chronic kidney disease) (3) ACS (acute coronary syndrome) (4) Proteinuria (5) Cardiomyopathy Assessment Diabetic Nephropathy DM OOC Renal failure chronic Pacer ACS urine + for MJ Plan no labs today- coreg zestril nitro asa starlix medium cho diet accu check ss insulin 2Decho : There is akinesis of posterior wall. Ischemic cardiomyopathy can not be excluded. Left ventricular ejection fraction estimated to be 45 %. per orders Subjective ROS Limited/Unobtainable: No Objective Objective Last 24 Hour Vital Signs Date Time Temp Pulse Resp B/P (MAP) Pulse Ox O2 Delivery O2 Flow Rate FiO2 10/09/18 14:09 132/68 10/09/18 12:00 71 10/09/18 09:00 Room Air 10/09/18 08:00 68 10/09/18 08:00 132/68 10/09/18 08:00 97.8 100 18 146/83 (104) 100 10/09/18 04:00 98.1 64 18 132/68 (89) 96 10/09/18 03:48 64 10/08/18 23:59 65 10/08/18 21:00 Room Air 10/08/18 20:10 74 10/08/18 20:00 97.9 66 18 105/61 (76) 96 10/08/18 17:35 107/62 10/08/18 16:09 97.5 10/08/18 16:00 97.5 67 20 107/62 (77) 97 10/08/18 15:59 64 Intake and Output 10/08/18 10/09/18 19:00 07:00 Intake Total 500 ml Output Total 700 ml Balance -200 ml Intake Oral 500 ml Output Urine Total 700 ml Height (Feet): 6 Weight (Pounds): 200 General Appearance: no apparent distress Objective no change Shashank Thakur MD Oct 09, 2018 15:45
[2018-10-09 16:00] VITALS: BP 115/83
--- NOTE | 2018-10-09 19:11 | NUR ---
HAND-OFF: Report given to latonya gary.
--- NOTE | 2018-10-09 19:30 | NUR ---
NURSE NOTES: Received patient from ERIC Knutson. Patient is awake, AOx4, IV site intact and patent. Call light within reach. Bed brakes engaged.
[2018-10-09 20:00] VITALS: BP 119/76
[2018-10-09] MEDS: Tamsulosin 0.4mg cap ORAL SCH (21:01)
--- NOTE | 2018-10-09 21:15 | NUR ---
NURSE NOTES: Patient requested pain medication at this time. Rated 6/10. Pain medication given as ordered.
--- NOTE | 2018-10-09 21:54 | Cardiology Progress Note ---
Assessment/Plan Assessment/Plan 1. Atypical chest pain with elevation of trop I level, nuclear stress test is non-ischemic, there is areas of infarct in the inferolateral and lateral wall. 2. History of CAD status post myocardial infarction, status post PCI. 3. 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 4. Status post AICD implantation due to primary prevention of sudden cardiac . 5. Paroxysmal atrial fibrillation now in SR. 6. Right BKA due to osteomyelitis. 7. B/L blindness Subjective Subjective Sinus rhythm at rate of 86. Objective Last 24 Hour Vital Signs Date Time Temp Pulse Resp B/P (MAP) Pulse Ox O2 Delivery O2 Flow Rate FiO2 10/09/18 17:02 115/83 10/09/18 16:00 97.2 86 19 115/83 (94) 96 10/09/18 16:00 77 10/09/18 14:09 132/68 10/09/18 12:00 71 10/09/18 09:00 Room Air 10/09/18 08:00 68 10/09/18 08:00 132/68 10/09/18 08:00 97.8 100 18 146/83 (104) 100 10/09/18 04:00 98.1 64 18 132/68 (89) 96 10/09/18 03:48 64 10/08/18 23:59 65 Intake and Output 10/08/18 10/09/18 19:00 07:00 Intake Total 500 ml Output Total 700 ml Balance -200 ml Intake Oral 500 ml Output Urine Total 700 ml 2D Echo: LVEF 45%, posterior & mid inferior wall AK, RVSp 13 mmHg, Grade I LVDD Objective HEENT: Atraumatic and normocephalic. The patient is blind due to eye trauma. NECK: JVP less than 5 cm. No carotid bruit. Carotid upstrokes 2+ bilaterally. CARDIOVASCULAR: Normal S1, S2. Regular rate and rhythm. Tachycardic. No murmurs, gallops, or rubs. PMI is at fourth intercostal space of the midclavicular line. LUNGS: Clear to auscultation bilaterally. ABDOMEN: Soft, nontender, and nondistended. No hepatosplenomegaly. Positive bowel sounds. EXTREMITIES: There is right below-knee amputation. Left lower extremity with no edema. Nilton Teresa MD Oct 09, 2018 21:54
--- NOTE | 2018-10-09 23:08 | General Progress Note ---
Assessment/Plan Problem List: (1) Chest pain ICD Codes: R07.9 - Chest pain, unspecified SNOMED: [id number] Qualifiers: Qualified Codes: R07.9 - Chest pain, unspecified (2) ACS (acute coronary syndrome) ICD Codes: I24.9 - Acute ischemic heart disease, unspecified SNOMED: 669855930 (3) CKD (chronic kidney disease) ICD Codes: N18.9 - Chronic kidney disease, unspecified SNOMED: 418054893, 10872445 Qualifiers: Qualified Codes: N18.9 - Chronic kidney disease, unspecified (4) Hyperglycemia due to type 2 diabetes mellitus ICD Codes: E11.65 - Type 2 diabetes mellitus with hyperglycemia SNOMED: 052964056810979, 80060762 Qualifiers: Qualified Codes: E11.65 - Type 2 diabetes mellitus with hyperglycemia (5) Cardiomyopathy ICD Codes: I42.9 - Cardiomyopathy, unspecified SNOMED: 20460062 Status: progressing Assessment/Plan bka niddm cp r/p acs unsafe to go home needs snf for pt/ot sugar is improving stress test per director financial planning Subjective ROS Limited/Unobtainable: Yes Allergies: Coded Allergies: No Known Allergies (Verified , 11/06/11) Objective Last 24 Hour Vital Signs Date Time Temp Pulse Resp B/P (MAP) Pulse Ox O2 Delivery O2 Flow Rate FiO2 10/09/18 17:02 115/83 10/09/18 16:00 97.2 86 19 115/83 (94) 96 10/09/18 16:00 77 10/09/18 14:09 132/68 10/09/18 12:00 71 10/09/18 09:00 Room Air 10/09/18 08:00 68 10/09/18 08:00 132/68 10/09/18 08:00 97.8 100 18 146/83 (104) 100 10/09/18 04:00 98.1 64 18 132/68 (89) 96 10/09/18 03:48 64 10/08/18 23:59 65 Intake and Output 10/08/18 10/09/18 19:00 07:00 Intake Total 500 ml Output Total 700 ml Balance -200 ml Intake Oral 500 ml Output Urine Total 700 ml Height (Feet): 6 Weight (Pounds): 200 Cardiovascular: normal rate Respiratory/Chest: lungs clear Abdomen: soft Christina Lea MD Oct 09, 2018 23:08
[2018-10-10] VITALS: BP 122/74
[2018-10-10] MEDS: Carvedilol 6.25mg Tab ORAL SCH ×2 (00:12→11:00)
[2018-10-10] MEDS: Morphine Sulfate 4mg/ml Inj (IV/IM USE ONLY) IVP PRN ×2 (02:27→09:19)
[2018-10-10 04:00] VITALS: BP 138/87
[2018-10-10] MEDS: NovoLOG Insulin Flexpen SUBQ SCH ×2 (06:07→11:05)
[2018-10-10 07:31] LABS: BASOPHILS % (AUTO) 1.3 % (0.0-2.0); EOSINOPHILS % (AUTO) 1.4 % (0.0-3.0); HEMOGLOBIN 13.2 G/DL (14.2-18.0); MEAN CORPUSCULAR VOLUME 86 FL (80-99); MONOCYTES % (AUTO) 11.9 % (1.0-10.0); NEUTROPHILS % (AUTO) 49.4 % (45.0-75.0); PLATELET COUNT 235 K/UL (150-450); RED BLOOD COUNT 4.52 M/UL (4.70-6.10); RED CELL DISTRIBUTION WIDTH 14.7 % (11.6-14.8)
--- NOTE | 2018-10-10 07:51 | NUR ---
HAND-OFF: Report given to ERIC Ospina. Endorsed plan of care.
--- NOTE | 2018-10-10 07:53 | NUR ---
NURSE NOTES: Received report from ERIC Chavira. Patient is in stable condition. No acute distress/SOB noted. Patient denies any pain/discomfort. Will continue plan of care.
[2018-10-10 08:00] VITALS: BP 128/81
[2018-10-10 08:03] LABS: ALANINE AMINOTRANSFERASE 20 U/L (12-78); ALBUMIN 3.7 G/DL (3.4-5.0); ALBUMIN/GLOBULIN RATIO 1.2 (1.0-2.7); ALKALINE PHOSPHATASE 84 U/L (46-116); ANION GAP 8 mmol/L (5-15); ASPARTATE AMINO TRANSFERASE 13 U/L (15-37); BILIRUBIN,TOTAL 0.7 MG/DL (0.2-1.0); BLOOD UREA NITROGEN 22 mg/dL (7-18); CALCIUM 9.6 MG/DL (8.5-10.1); CARBON DIOXIDE 26 MMOL/L (21-32); CHLORIDE 103 MMOL/L (98-107); CREATININE 1.4 MG/DL (0.55-1.30); PHOSPHORUS 4.1 MG/DL (2.5-4.9); POTASSIUM 4.8 MMOL/L (3.5-5.1); SODIUM 137 MMOL/L (136-145)
[2018-10-10] MEDS: Lisinopril 2.5mg tab ORAL SCH (09:00)
[2018-10-10] MEDS: Aspirin Baby 81mg ORAL SCH (09:01)
[2018-10-10] MEDS: Nitroglycerin Patch 0.4mg TDERMAL SCH (11:01)
--- NOTE | 2018-10-10 11:36 | Nephrology Progress Note ---
Assessment/Plan Problem List: (1) Hyperglycemia due to type 2 diabetes mellitus (2) CKD (chronic kidney disease) (3) ACS (acute coronary syndrome) (4) Proteinuria (5) Cardiomyopathy Assessment Diabetic Nephropathy DM OOC Renal failure chronic Cr stable Pacer ACS urine + for MJ Plan coreg zestril nitro asa starlix medium cho diet accu check ss insulin 2Decho : There is akinesis of posterior wall. Ischemic cardiomyopathy can not be excluded. Left ventricular ejection fraction estimated to be 45 %. per orders Subjective ROS Limited/Unobtainable: No Constitutional: Reports: malaise Objective Objective Last 24 Hour Vital Signs Date Time Temp Pulse Resp B/P (MAP) Pulse Ox O2 Delivery O2 Flow Rate FiO2 10/10/18 11:01 137/83 10/10/18 11:00 67 137/83 10/10/18 09:00 Room Air 10/10/18 09:00 128/81 10/10/18 08:00 98.4 68 18 128/81 (97) 68 10/10/18 08:00 69 10/10/18 04:00 98.0 70 20 138/87 (104) 99 10/10/18 03:38 66 10/10/18 00:12 68 122/74 10/10/18 00:00 98.0 66 20 122/74 (90) 96 10/09/18 23:55 68 10/09/18 21:00 Room Air 10/09/18 20:27 67 10/09/18 20:00 97.9 70 20 119/76 (90) 97 10/09/18 17:02 115/83 10/09/18 16:00 97.2 86 19 115/83 (94) 96 10/09/18 16:00 77 10/09/18 14:09 132/68 10/09/18 12:00 71 Intake and Output 10/09/18 10/10/18 19:00 07:00 Intake Total 650 ml Output Total 600 ml 1000 ml Balance 50 ml -1000 ml Other 650 ml Output Urine Total 600 ml 1000 ml # Voids 2 3 # Bowel Movements 1 1 Laboratory Tests 10/10/18 07:00: White Blood Count 6.0, Red Blood Count 4.52L, Hemoglobin 13.2L, Hematocrit 39.0L , Mean Corpuscular Volume 86, Mean Corpuscular Hemoglobin 29.1, Mean Corpuscular Hemoglobin Concent 33.8, Red Cell Distribution Width 14.7, Platelet Count 235, Mean Platelet Volume 6.7, Neutrophils (%) (Auto) 49.4, Lymphocytes (% ) (Auto) 36.0, Monocytes (%) (Auto) 11.9H, Eosinophils (%) (Auto) 1.4, Basophils (%) (Auto) 1.3, Sodium Level 137, Potassium Level 4.8, Chloride Level 103, Carbon Dioxide Level 26, Anion Gap 8, Blood Urea Nitrogen 22H, Creatinine 1.4H, Estimat Glomerular Filtration Rate > 60, Glucose Level 116H, Uric Acid 7.0 , Calcium Level 9.6, Phosphorus Level 4.1, Magnesium Level 1.8, Total Bilirubin 0.7, Aspartate Amino Transf (AST/SGOT) 13L, Alanine Aminotransferase (ALT/SGPT) 20, Alkaline Phosphatase 84, Troponin I 0.112H, C-Reactive Protein, Quantitative 1.4H, Pro-B-Type Natriuretic Peptide 315H, Total Protein 6.9, Albumin 3.7, Globulin 3.2, Albumin/Globulin Ratio 1.2 Height (Feet): 6 Weight (Pounds): 200 General Appearance: no apparent distress Objective no change Shashank Thakur MD Oct 10, 2018 11:36
--- NOTE | 2018-10-10 11:43 | NUR ---
NURSE NOTES: Discharge report given to THERESA Tee at [facility]. . She said she can admit patient after 4PM since they do not have a RN.
[2018-10-10 12:00] VITALS: BP 147/80
[2018-10-10 16:00] VITALS: BP 152/91
--- NOTE | 2018-10-10 16:45 | NUR ---
NURSE NOTES: Discharge instruction given and patient verbalized understanding. Inventory check done. All belongings given to patient. Removed front desk monitor and IV line. IV site clean and no bleeding noted. Patient is in stable condition. No acute distress/SOB noted. Patient is discharge via gurney with 2 passenger coach driver.
--- NOTE | 2018-10-10 23:44 | Cardiology Progress Note ---
Assessment/Plan Assessment/Plan 1. Atypical chest pain with elevation of trop I level, nuclear stress test is non-ischemic, there is areas of infarct in the inferolateral and lateral wall. 2. History of CAD status post myocardial infarction, status post PCI. 3. 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 4. Status post AICD implantation due to primary prevention of sudden cardiac . 5. Paroxysmal atrial fibrillation now in SR. 6. Right BKA due to osteomyelitis. 7. B/L blindness Subjective Subjective Sinus rhythm at rate of 86. Objective Last 24 Hour Vital Signs Date Time Temp Pulse Resp B/P (MAP) Pulse Ox O2 Delivery O2 Flow Rate FiO2 10/10/18 16:00 97.7 68 18 152/91 (111) 99 10/10/18 12:00 64 10/10/18 12:00 97.7 66 20 147/80 (102) 100 10/10/18 11:01 137/83 10/10/18 11:00 67 137/83 10/10/18 09:00 Room Air 10/10/18 09:00 128/81 10/10/18 08:00 98.4 68 18 128/81 (97) 68 10/10/18 08:00 69 10/10/18 04:00 98.0 70 20 138/87 (104) 99 10/10/18 03:38 66 10/10/18 00:12 68 122/74 10/10/18 00:00 98.0 66 20 122/74 (90) 96 10/09/18 23:55 68 Intake and Output 10/09/18 10/10/18 19:00 07:00 Intake Total 650 ml Output Total 600 ml 1000 ml Balance 50 ml -1000 ml Other 650 ml Output Urine Total 600 ml 1000 ml # Voids 2 3 # Bowel Movements 1 1 Laboratory Tests Test 10/10/18 07:00 White Blood Count 6.0 K/UL (4.8-10.8) Red Blood Count 4.52 M/UL (4.70-6.10) L Hemoglobin 13.2 G/DL (14.2-18.0) L Hematocrit 39.0 % (42.0-52.0) L Mean Corpuscular Volume 86 FL (80-99) Mean Corpuscular Hemoglobin 29.1 PG (27.0-31.0) Mean Corpuscular Hemoglobin Concent 33.8 G/DL (32.0-36.0) Red Cell Distribution Width 14.7 % (11.6-14.8) Platelet Count 235 K/UL (150-450) Mean Platelet Volume 6.7 FL (6.5-10.1) Neutrophils (%) (Auto) 49.4 % (45.0-75.0) Lymphocytes (%) (Auto) 36.0 % (20.0-45.0) Monocytes (%) (Auto) 11.9 % (1.0-10.0) H Eosinophils (%) (Auto) 1.4 % (0.0-3.0) Basophils (%) (Auto) 1.3 % (0.0-2.0) Sodium Level 137 MMOL/L (136-145) Potassium Level 4.8 MMOL/L (3.5-5.1) Chloride Level 103 MMOL/L (98-107) Carbon Dioxide Level 26 MMOL/L (21-32) Anion Gap 8 mmol/L (5-15) Blood Urea Nitrogen 22 mg/dL (7-18) H Creatinine 1.4 MG/DL (0.55-1.30) H Estimat Glomerular Filtration Rate > 60 mL/min (>60) Glucose Level 116 MG/DL (74-106) H Uric Acid 7.0 MG/DL (2.6-7.2) Calcium Level 9.6 MG/DL (8.5-10.1) Phosphorus Level 4.1 MG/DL (2.5-4.9) Magnesium Level 1.8 MG/DL (1.8-2.4) Total Bilirubin 0.7 MG/DL (0.2-1.0) Aspartate Amino Transf (AST/SGOT) 13 U/L (15-37) L Alanine Aminotransferase (ALT/SGPT) 20 U/L (12-78) Alkaline Phosphatase 84 U/L (46-116) Troponin I 0.112 ng/mL (0.000-0.056) C-Reactive Protein, Quantitative 1.4 mg/dL (0.00-0.90) H Pro-B-Type Natriuretic Peptide 315 pg/mL (0-125) H Total Protein 6.9 G/DL (6.4-8.2) Albumin 3.7 G/DL (3.4-5.0) Globulin 3.2 g/dL Albumin/Globulin Ratio 1.2 (1.0-2.7) Objective HEENT: Atraumatic and normocephalic. The patient is blind due to eye trauma. NECK: JVP less than 5 cm. No carotid bruit. Carotid upstrokes 2+ bilaterally. CARDIOVASCULAR: Normal S1, S2. Regular rate and rhythm. Tachycardic. No murmurs, gallops, or rubs. PMI is at fourth intercostal space of the midclavicular line. LUNGS: Clear to auscultation bilaterally. ABDOMEN: Soft, nontender, and nondistended. No hepatosplenomegaly. Positive bowel sounds. EXTREMITIES: There is right below-knee amputation. Left lower extremity with no edema. Nilton Teresa MD Oct 10, 2018 23:44
--- NOTE | 2018-10-12 10:36 | Discharge Summary ---
Discharge Summary Discharge Summary _ DATE OF ADMISSION: 10/07/2018 DATE OF DISCHARGE: 10/10/2018 DISCHARGED BY: REASON FOR ADMISSION: 58 years old male with past medical history of coronary artery disease, myocardial infarction, s/p PCI, congestive heart failure, paroxysmal atrial fibrillation, diabetes mellitus, presented to emergency department with chief complaint of chest pain. Chest pain started while he was in the restaurant. Pain rated 7 out of 10 on a scale 1-10 , no radiation ,no shortness of breath , no fever, no chills ,no nausea ,no vomiting. Patient experienced similar symptoms in the past. Paramedics provided patient with aspirin and nitroglycerin with some relief. Upon evaluation vital signs revealed mild tachycardia with heart rate 108 , otherwise stable vital signs . laboratory workup revealed leukocytosis, stable hemoglobin and hematocrit , BUN 39, creatinine 1.9. Glucose 278 . Troponin elevated - 0.304. Pro BNP 330. EKG revealed normal sinus rhythm , no acute ischemic changes. Urinalysis revealed n o evidence of UTI. Urine toxicology screen was positive for marijuana. Chest x-ray revealed no acute cardiopulmonary pathology Patient was admitted for further management CONSULTANTS: concrete products dispatcher Dr Teresa finished cloth checker Dr. Thakur pain specialist Dr. Villalobos [facility] COURSE: Patient admitted to telemetry floor. Scheduling Administrator and finished cloth checker closely followed. Echocardiogram revealed ejection fraction 45% with mild left ventricular hypertrophy. Akinesis of posterior wall was noted. Serial troponin trending down . EKG revealed no acute ischemic changes. Myocardial perfusion test demonstrated relatively fixed large perfusion defect, involving the anterolateral wall and inferior lateral segment , consistent with myocardial infarction. No reversibility involving any of the segment to suggest ischemia. Per concrete products dispatcher, stress test revealed evidence of old infarct , but no evidence of ischemia.. Patient had atypical chest pain. Mild elevation in troponin was likely due to troponin leak due to renal failure. Patient with known history of coronary artery disease , status post myocardial infarction , status post PCI. Patient had a history of cardiomyopathy, tachycardia induced versus ischemic cardiomyopathy; status post AICD implantation for primary prevention of sudden cardiac . Medical management of cardiomyopathy provided with beta-sandi, MAR inhibitor and Spironolactone. Antiplatelet therapy with aspirin was continued. Nitroglycerin was on board as needed. Outpatient interrogation was recommended on a routine basis. Patient had a history of paroxysmal atrial fibrillation, however during this admission appeared to be in sinus rhythm. Board Filler closely followed. Urinalysis with evidence of proteinuria. Diabetes mellitus uncontrolled with hemoglobin A1c 8.3. Patient likely had diabetic nephropathy. Per finished cloth checker, renal failure was chronic probably due to diabetic nephropathy. Creatinine down to 1.4. Electrolytes were closely monitored and corrected as needed. Nephrotoxins were avoided. Blood sugar was managed with Starlix and sliding scale of insulin as needed. Compliance with diabetic diet and medication was stressed. Patient will need further optimization of anti-glycemic regimen as outpatient. Pain management was addressed as per pain specialist recommendation for phantom limb pain. Pain was controlled. Supportive care provided. Placement was arranged to [facility] . Patient was stable for transfer to [facility] for further management. FINAL DIAGNOSES: Atypical chest pain Elevated troponin level likely troponin leak due to renal failure History of coronary disease , status post myocardial infarction status post PCI History of cardiomyopathy, tachycardia induced versus ischemic cardiomyopathy with current ejection fraction 45% Status post AICD implantation Paroxysmal atrial fibrillation Right BKA due to osteomyelitis Phantom limb pain Chronic kidney disease likely due to diabetic nephropathy Diabetes mellitus out of control DISCHARGE MEDICATIONS: List of medication was sent to accepting facility DISCHARGE INSTRUCTIONS: Patient was discharged to the [facility] facility/[facility]. Follow up with medical doctor at the facility. I have been assigned to dictate discharge summary for this account. I was not involved in the patient's management. Kayce Webber NP Oct 12, 2018 10:36
== END 2018-10-10 16:49 | DRG 313 ==
LOC: EDBD 04:49 → EMR 05:10 → 2E 05:43 → EDBEDREQ 06:27
DX: R07.89 Other chest pain (principal); I42.9 Cardiomyopathy, unspecified; I13.0 Hypertensive heart and chronic kidney disease with heart failure and stage 1 through stage 4 chronic kidney disease, or unspecified chronic kidney disease; I12.9 Hypertensive chronic kidney disease with stage 1 through stage 4 chronic kidney disease, or unspecified chronic kidney disease; N18.9 Chronic kidney disease, unspecified; I48.0 Paroxysmal atrial fibrillation; Z89.511 Acquired absence of right leg below knee; G54.6 Phantom limb syndrome with pain; Z72.0 Tobacco use; R80.9 Proteinuria, unspecified; I25.2 Old myocardial infarction; I50.9 Heart failure, unspecified; I25.10 Atherosclerotic heart disease of native coronary artery without angina pectoris; D72.829 Elevated white blood cell count, unspecified; E11.22 Type 2 diabetes mellitus with diabetic chronic kidney disease; E11.65 Type 2 diabetes mellitus with hyperglycemia; Z79.84 Long term (current) use of oral hypoglycemic drugs; H54.8 Legal blindness, as defined in USA; Z95.810 Presence of automatic (implantable) cardiac defibrillator; Z95.5 Presence of coronary angioplasty implant and graft
CPT/HCPCS: 36415; 71045; 78452; 80053; 80061; 80307; 81003; 82550; 82553; 82607; 82728; 82746; 82962; 82977; 83036; 83540; 83550; 83735; 83880; 84100; 84443; 84484; 84550; 85025; 85610; 85730; 86140; 93005; 93017; 93306; 96372; 96374; 99285; J1815; J2785